=== PATIENT | female | born 1975 | race Caucasian/White ===

== ENCOUNTER 2024-11-24 09:34 | Emergency (ER) | payer OTHER, SELFPAY ==
[2024-11-24 09:36] VITALS: BP 161/76
--- NOTE | 2024-11-24 10:02 | ED.GENMED ---
History of Present Illness
General
Chief Complaint: Musculo-Skeletal Complaint
Source: patient
Exam Limitations: none
Time Seen by Provider: 11/24/24 09:44
Nursing documentation reviewed up to this point in time: agreed with
History of Present Illness
History of Present Illness:
Patient presents to ED secondary to left fourth finger injury, which occurred shortly prior to arrival, when she accidentally dropped approxi-30 pound dumbbell onto her finger. Denies any other injuries. Denies loss of sensation. Patient is
right-hand dominant. Patient unsure of her last tetanus vaccination, but feels as though it was less than 10 years ago.
Past History
Past History
ED Past Medical History: None; Negative Asthma, HTN, Hypercholesterolemia or NIDDM
ED Past Surgical History: (X2) and Other (Hernia repair)
Social History
Tobacco: Non-smoker
Alcohol: Occasional
Personal:
Living: with family
Employment: Employed
Review of Systems
Review of Systems
Allergies reviewed?: Yes
All Other Systems: ROS reviewed and negative except as documented in HPI and ROS
Constitutional: Reports no symptoms
ABD/GI: Reports no symptoms
Musculoskeletal: Reports other (Left fourth finger pain)
Skin: Reports other (Ring finger injury with bleeding)
Neurological: Reports no symptoms
Phy Exam
Physical Exam
Physical Exam:
Physical Exam
General: moderate painful distress, not acutely ill. afebrile
Head: nc/at. eomi
Neck: supple. no meningeal signs.
Neuro: alert and oriented x 3. no focal neurological deficits
Skin: left 4th finger - nail fractured with laceration over volar surface, with moderate tenderness to palpation
Psychiatric: well kept. interactive and cooperative
Extremities: no edema.
Course
Orders/Labs/Results
Orders:
Orders
11/24/24 09:36
Hand, Left 3 View [CR Hand - Left Min 3 Views] Urgent
Comment: attention to 4th and 5th finger
Reason For Exam: left hand got caught bewteen to weights
11/24/24 10:00
Acetaminophen [Tylenol] 1,000 mg PO NOW STA
Cephalexin Monohydrate [Keflex] 500 mg PO NOW STA
Ibuprofen [Motrin] 400 mg PO NOW STA
Vital Signs
Initial and Last Documented VS:
Initial Vital Signs
Temp Pulse Resp BP Pulse Ox
98.6 F 105 16 161/76 98
11/24/24 09:36 11/24/24 09:36 11/24/24 09:36 11/24/24 09:36 11/24/24 09:36
Last Documented Vital Signs
Temp Pulse Resp BP Pulse Ox
98.6 F 105 16 161/76 98
11/24/24 09:36 11/24/24 09:36 11/24/24 09:36 11/24/24 09:36 11/24/24 10:07
MDM/Problems Addressed
MDM/Problems Addressed:
X-ray report reviewed and discussed with patient. After digital block, patient irrigated copiously.
Discussed with on-call orthopedic surgeon, Dr. Barros. Agrees with plan for irrigation and bulky dressing. Recommend starting patient on antibiotics, i.e. Augmentin, and will follow-up with the patient in the office this week.
*Pulse Oximetry
SaO2: 98
Oxygen Mode of Delivery: Room air
Patient hypoxic: no
*Critical Care Note
Total Time (30-74mins, 75-104mins- exclusive of procedures): Not Applicable
ED Attending Note
-
Portions of this chart may have been created with voice recognition software.� Occasional wrong word or��sound alike� substitutions may have occurred due to the inherent limitations of voice recognition software.
Discharge Plan
Departure
Patient Disposition: Home (Routine Discharge)
Date of Disposition: 11/24/24
Time of Disposition: 11:27
Patient with high blood pressure during this ER visit?: Yes
Condition: Fair
Discharge Problem:
Finger fracture, left
Instructions: Finger Fracture ED
Prescriptions:
New
amoxicillin-pot clavulanate 875-125 mg tablet
1 tab PO BID Qty: 10 0RF
oxycodone-acetaminophen [Percocet] 5-325 mg Tablet
1 tab PO Q6HPRN PRN (Reason: pain) Qty: 12 0RF
No Action
acetaminophen 500 mg Tablet
1,000 mg PO Q6H PRN (Reason: Pain)
magnesium glycinate
1 tab PO HS
Referrals:
Jus Barros MD [Active, Orthopedics]
Edyta Fuentes MD [Family Provider, Internal Medicine]
Stand Alone Forms: Return to Work
Activity Restrictions/Additional Instructions:
As discussed, please follow-up with referred hand surgeon for reevaluation this week. Your prescription has been sent electronically to [facility] pharmacy in [place].
Interventions
Interventions:
*Risk Screen - Suicide Last Done: 11/24/24 09:36
*Neglect/Abuse Screening Last Done: 11/24/24 09:36
*Nursing Disposition Last Done: 11/24/24 11:39
ED-Musculoskeletal Assessment Last Done: 11/24/24 09:55
Discharge Date and Time
Discharge Date/Time: 11/24/24 11:40
Print Language: MALTESE
[2024-11-24] MEDS: MOTRIN 400 MG PO (10:07)
[2024-11-24] MEDS: TYLENOL 1000 MG PO (10:08)
[2024-11-24] MEDS: KEFLEX 500 MG PO (10:15)
== END 2024-11-24 11:40 | disposition home or self-care (01) ==
LOC: EMR 09:34
PROVIDERS: EMERGENCY PHYSICIAN Emergency Medicine; FAMILY PHYSICIAN Internal Medicine
DX: S62.635A Displaced fracture of distal phalanx of left ring finger, initial encounter for closed fracture (principal); W20.8XXA Other cause of strike by thrown, projected or falling object, initial encounter
CPT/HCPCS: 99283; 73130

== ENCOUNTER 2024-11-26 05:53 | Day surgery (SDC) | payer BC, SELFPAY ==
[2024-11-26 06:11] VITALS: BMI 28.7
[2024-11-26 06:12] VITALS: BP 133/82
[2024-11-26] MEDS: CELEBREX 200 MG PO (06:24)
[2024-11-26] MEDS: NORMOSOL-R/PLASMALYTE-A 1000 IV (06:24)
[2024-11-26] MEDS: TYLENOL 1000 MG PO (06:24)
[2024-11-26 07:40] VITALS: BP 118/67
[2024-11-26 07:45] VITALS: BP 119/70
[2024-11-26 08:00] VITALS: BP 116/69
[2024-11-26 08:11] VITALS: BP 110/66
== END 2024-11-26 08:25 | disposition home or self-care (01) ==
LOC: SDS 05:53
PROVIDERS: ATTENDING PHYSICIAN Orthopaedic Surgery Hand Surgery
DX: S67.195A Crushing injury of left ring finger, initial encounter (principal); W23.0XXA Caught, crushed, jammed, or pinched between moving objects, initial encounter
CPT/HCPCS: 11760